=== PATIENT | female | born 1960 ===

== ENCOUNTER 2024-11-17 14:27 | Day surgery (SDC) | payer BC ==
[2024-11-17] MEDS ORDERED: Propofol 200 MG/20 ML SDV ONE (14:50)
[2024-11-17] MEDS ORDERED: fentaNYL 100 MCG/2 ML SDV ONE (14:50)
[2024-11-17] MEDS: Lactated Ringers 1,000 ML IV SCH (15:24)
[2024-11-17] MEDS ORDERED: Ondansetron 4 MG/2 ML SDV ONE ×2 (15:30→15:36)
[2024-11-17] MEDS ORDERED: Dexamethasone 4 MG/ML 5 ML MDV ONE (15:36)
[2024-11-17] MEDS ORDERED: EPINEPHrine 1 MG/ML SDV ONE (15:46)
[2024-11-17] MEDS: Bupivacaine 0.5% 30 ML SDV ONE (15:48)
[2024-11-17] MEDS ORDERED: Ketorolac 30 MG/ML SDV ONE (15:51)
[2024-11-17] MEDS ORDERED: ePHEDrine 50 MG/ML SDV ONE (15:53)
[2024-11-17] MEDS ORDERED: Ondansetron 4 MG/2 ML SDV IVPUSH PRN (16:22)
[2024-11-17] MEDS ORDERED: HYDROmorphone 0.5 MG/0.5 ML Syringe IVPUSH PRN (16:22)
[2024-11-17] MEDS ORDERED: HYDROmorphone 0.5 MG/0.5 ML Syringe ONE (16:45)
[2024-11-17] MEDS: oxyCODONE 5 MG Tab PO PRN (17:00)
== END 2024-11-17 17:30 | disposition home or self-care (01) ==
LOC: JD.SDS 14:27
PROVIDERS: ATTEND Surgery
DX: L02.211 Cutaneous abscess of abdominal wall (principal); L03.311 Cellulitis of abdominal wall; L72.3 Sebaceous cyst; E78.1 Pure hyperglyceridemia; F41.9 Anxiety disorder, unspecified; Z79.899 Other long term (current) drug therapy; Z88.0 Allergy status to penicillin; Z88.1 Allergy status to other antibiotic agents
CPT/HCPCS: 10061; 87070; 87075; 87205; A9270; J0171; J0665; J1100; J1885; J2405; J2704; J3010; J7120; J3490